=== PATIENT | female | born 1980 | race Caucasian/White ===

== ENCOUNTER 2021-03-30 07:56 | Emergency (ER) | payer MEDICARE, MEDICAID ==
[~2021-03-30] VITALS: Ht 165 cm; Wt 97.0 kg
--- OUTSIDE RECORDS SUMMARY | 2021-03-30 08:03 | XMS REPORT | Clinical Summary ---
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 Not on file Active Problems Not on file Social History Date Tobacco Use Types Packs/Day Years Used Never Assessed Sex Assigned at Date Recorded Not on file Last Filed Vital Signs Not on file Plan of Treatment Health Maintenance Due Date Last Done Comments HPV/Cotest 1980 COVID-19 Vaccine (1) 1992 Cervical Cancer Screening 2001 Pap Smear 2001 Influenza Vaccine (#1) 2021 HPV Vaccine Aged Out No longer eligible based on patient's age to complete this topic Pneumococcal Vaccine: Aged Out No longer eligib le based on patient's age to Pediatrics (0 to 5 Years) complete this topic and At-Risk Patients (6 to 64 Years) Results Not on filefrom Last 3 Months 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
--- OUTSIDE RECORDS SUMMARY | 2021-03-30 08:03 | XMS REPORT | Clinical Summary ---
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 Active busPIRone (BUSPAR) 15 MG Take by mouth 1 06/12 tablet 2 (two) times 8 daily. Active gabapentin (NEURONTIN) TK 1 T PO QID 0 01 600 MG tablet 8 Active mirtazapine (REMERON) 7.5 Take by 1 05/29 5/201 MG tablet mouth. 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 Blood Pressure 100 07/05/2018 10:50 PM CEREAL POPPER Pulse 36.9 C (98.4 F) 07/05/2018 10:04 PM CEREAL POPPER Temperature 20 07/05/2018 10:50 PM CEREAL POPPER Respiratory Rate 100% 07/05/2018 10:50 PM CEREAL POPPER Oxygen Saturation - - Inhaled Oxygen Concentration 58.1 kg (128 lb) 07/05/2018 8:09 PM CEREAL POPPER Weight 165.1 cm (5' 5") 07/05/2018 8:09 PM CEREAL POPPER Height 21.3 07/05/2018 8:09 PM CEREAL POPPER Body Mass Index Plan of Treatment Health Maintenance Due Date Last Done Comments Varicella Vaccines (1 of 1981 2 - 2-dose childhood series) Annual Wellness Visit 1998 Hepatitis C Screening 1998 DTaP,Tdap,and Td Vaccines 1999 (1 - Tdap) MMR Vaccines-Adult 1999 Cervical Cancer Screening 2001 Influenza Vaccine (#1) 2021 COVID-19 Vaccine (2 - 04/11/2021 03/14/2021 Moderna 2-dose series) Pneumo-Vaccine: 65+Yrs (1 2045 of 1 - PPSV23) HIB Vaccines Aged Out No longer eligible based on patient's age to complete this topic IPV Vaccines Aged Out No longer eligible based on patient's age to complete this topic Meningococcal Vaccine Aged Out No longer eligib le based on patient's age to complete this topic Pneumo-Vaccine: Peds (0-5 Aged Out No longer el igible based on patient's age to Yrs) & At-Risk Patients complete this topic (6-64 Yrs) Rotavirus Vaccines Aged Out No longer eligible based on patient's age to complete this topic Results Not on filefrom Last 3 Months Insurance Type Payer Benefit Subscriber ID Effective Phone Address Plan / Dates Group Medicare MEDICARE MEDICARE [id number] 2014-P [address] [place] [address] [employer] KANCARE 19 [id number] 2018- [address] [employer] Present [address] [place] [address] Advance Directives For more information, please contact: [phone] 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
[2021-03-30] MEDS ORDERED: QUET50TA22 (08:27)
[2021-03-30] MEDS ORDERED: ESCI-2 (08:27)
[2021-03-30] MEDS ORDERED: TOPI50TA13 (08:27)
[2021-03-30] MEDS ORDERED: METR70GE5 (08:27)
[2021-03-30] MEDS ORDERED: GBPN600T (08:27)
[2021-03-30] MEDS ORDERED: QUET300T19 (08:27)
[2021-03-30 08:35] LABS: BILIRUBIN,URINE NEGATIVE (NEGATIVE); CLARITY,URINE CLEAR; COLOR,URINE YELLOW; GLUCOSE, URINE (UA) NEGATIVE (NEGATIVE); KETONES,URINE NEGATIVE (NEGATIVE); LEUKOCYTE ESTERASE ,URINE NEGATIVE (NEGATIVE); NITRITE,URINE NEGATIVE (NEGATIVE); PH,URINE 6.5 (5-9); PROTEIN,URINE NEGATIVE (NEGATIVE)
[2021-03-30 08:41] LABS: BACTERIA,URINE NEGATIVE /HPF
[2021-03-30] MEDS ORDERED: LACTATED RINGERS 1,000 ML IV ONE (09:30)
[2021-03-30 09:34] LABS: ALBUMIN 3.9 GM/DL (3.2-4.5); BASOPHILS # (AUTO) 0.1 10^3/uL (0.0-0.1); BASOPHILS % (AUTO) 1 % (0-10); EOSINOPHILS # (AUTO) 0.3 10^3/uL (0.0-0.3); EOSINOPHILS % (AUTO) 4 % (0-10); HEMATOCRIT 41 % (35-52); HEMOGLOBIN 14.1 g/dL (11.5-16.0); LYMPHOCYTES # (AUTO) 2.4 10^3/uL (1.0-4.0); LYMPHOCYTES % (AUTO) 35 % (12-44); MEAN CORPUSCULAR HEMOGLOBIN 33 pg (25-34); MEAN CORPUSCULAR HGB CONC 35 g/dL (32-36); MEAN CORPUSCULAR VOLUME 95 fL (80-99); MEAN PLATELET VOLUME 9.5 fL (9.0-12.2); MONOCYTES # (AUTO) 0.5 10^3/uL (0.0-1.0); MONOCYTES % (AUTO) 7 % (0-12); NEUTROPHILS # (AUTO) 3.7 10^3/uL (1.8-7.8); NEUTROPHILS % (AUTO) 53 % (42-75); PLATELET COUNT 281 10^3/uL (130-400)
[2021-03-30 09:35] LABS: POTASSIUM 3.7 MMOL/L (3.6-5.0)
[2021-03-30 09:36] LABS: CALCIUM 8.9 MG/DL (8.5-10.1)
[2021-03-30 09:37] LABS: TOTAL PROTEIN 6.6 GM/DL (6.4-8.2)
[2021-03-30 09:39] LABS: BILIRUBIN,TOTAL 0.3 MG/DL (0.1-1.0)
[2021-03-30 09:41] LABS: CREATININE SERUM 0.76 MG/DL (0.60-1.30)
--- NOTE | 2021-03-30 09:44 | ED GU-Female ---
General Chief Complaint: - Reproductive Stated Complaint: UNABLE TO URINATE Nursing Triage Note: ARRIVED VIA AMB FROM [facility]. STATES SHE HAS NOT BEEN ABLE TO PEE SINCE YESTERDAY AT 1700 Source: patient Exam Limitations: no limitations History of Present Illness Date Seen by Provider: Mar 30, 2021 Time Seen by Provider: 08:49 Initial Comments Here with report of urinary retention since yesterday evening. She stopped drinking fluids because she did not want to blow up during that timeframe. She reports that she still cannot urinate today. Has had problems with dysuria in the past and or urgency/hesitancy but never had retention before. She did start Seroquel in November and is also on Topamax. Does have history of MS in the family. Follows with [facility]. Sent here for further evaluation. Patient denies fever, chills, nausea, vomiting, diarrhea. Does have intermittent constipation. Also has history of bacterial vaginosis frequently and does metronidazole gel. Timing/Duration: yesterday, getting worse Severity/Quality: moderate, full Location: suprapubic Radiation: none Activities at Onset: none Sexual [place] History: not active Associated Symptoms: dysuria; No fever/chills, No lower back pain, No nausea/vomiting Allergies and Home Medications Allergies Coded Allergies: No Known Drug Allergies (Unverified , 03/30/21) Patient Home Medication List Home Medication List Reviewed: Yes Review of Systems Review of Systems Constitutional: see HPI; No chills, No fever EENTM: No nose congestion, No throat pain Respiratory: No cough, No short of breath Cardiovascular: No chest pain, No edema Gastrointestinal: abdominal pain; No nausea, No vomiting Genitourinary: dysuria, pain, urgency : No Musculoskeletal: No back pain, No muscle stiffness All Other Systemes Reviewed Negative Unless Noted: Yes Past Awkjuvd-Sffhzu-Xetmlk Hx Patient Social History Tobacco Use?: Yes Smoking Status: Current Everyday Smoker Substance use?: No Alcohol Frequency: Daily Immunizations Up To Date First/Initial COVID19 Vaccinat: 2 WEEKS AGO - MODERNA Past Medical History Surgeries: Yes Tubal Ligation Respiratory: No Cardiac: No Neurological: 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 oz. kg; 35.00 BMI Method: General Appearance: WD/WN, no apparent distress HEENT: PERRL/EOMI, pharynx normal Neck: full range of motion, supple Cardiovascular: regular rate, rhythm, no murmur Respiratory: lungs clear, no accessory muscle use Gastrointestinal: normal bowel sounds, non tender, soft, no organomegaly, no pulsatile mass Back: normal inspection, no CVA tenderness, no vertebral tenderness Extremities: non-tender, normal inspection Neurologic/Psychiatric: alert, oriented x 3 Skin: normal color, warm/dry Progress/Results/Core Measures Suspected Sepsis SIRS Temperature: Pulse: 75 Respiratory Rate: 18 Laboratory Tests 03/30/21 09:12: White Blood Count 7.0 Blood Pressure 108 /75 Mean: 86 Laboratory Tests 03/30/21 09:12: Creatinine 0.76, Platelet Count 281, Total Bilirubin 0.3 Results/Orders Lab Results Laboratory Tests Test 03/30/21 08:15 03/30/21 09:12 Range/Units Urine Color YELLOW Urine Clarity CLEAR Urine pH 6.5 5-9 Urine Specific [place] 1.010 L 1.016-1.022 Urine Protein NEGATIVE NEGATIVE Urine Glucose (UA) NEGATIVE NEGATIVE Urine Ketones NEGATIVE NEGATIVE Urine Nitrite NEGATIVE NEGATIVE Urine Bilirubin NEGATIVE NEGATIVE Urine Urobilinogen 1.0 < = 1.0 MG/DL Urine Leukocyte Esterase NEGATIVE NEGATIVE Urine RBC (Auto) NEGATIVE NEGATIVE Urine RBC NONE /HPF Urine WBC NONE /HPF Urine Squamous Epithelial Cells NONE /HPF Urine Crystals NONE /LPF Urine Bacteria NEGATIVE /HPF Urine Casts NONE /LPF Urine Mucus NEGATIVE /LPF Urine Culture Indicated NO White Blood Count 7.0 4.3-11.0 10^3/uL Red Blood Count 4.29 3.80-5.11 10^6/uL Hemoglobin 14.1 11.5-16.0 g/dL Hematocrit 41 35-52 % Mean Corpuscular Volume 95 80-99 fL Mean Corpuscular Hemoglobin 33 25-34 pg Mean Corpuscular Hemoglobin Concent 35 32-36 g/dL Red Cell Distribution Width 12.8 10.0-14.5 % Platelet Count 281 130-400 10^3/uL Mean Platelet Volume 9.5 9.0-12.2 fL Immature Granulocyte % (Auto) 0 % Neutrophils (%) (Auto) 53 42-75 % Lymphocytes (%) (Auto) 35 12-44 % Monocytes (%) (Auto) 7 0-12 % Eosinophils (%) (Auto) 4 0-10 % Basophils (%) (Auto) 1 0-10 % Neutrophils # (Auto) 3.7 1.8-7.8 10^3/uL Lymphocytes # (Auto) 2.4 1.0-4.0 10^3/uL Monocytes # (Auto) 0.5 0.0-1.0 10^3/uL Eosinophils # (Auto) 0.3 0.0-0.3 10^3/uL Basophils # (Auto) 0.1 0.0-0.1 10^3/uL Immature Granulocyte # (Auto) 0.0 0.0-0.1 10^3/uL Erythrocyte Sedimentation Rate 25 H 0-20 MM/HR Sodium Level 142 135-145 MMOL/L Potassium Level 3.7 3.6-5.0 MMOL/L Chloride Level 113 H 98-107 MMOL/L Carbon Dioxide Level 20 L 21-32 MMOL/L Anion Gap 9 5-14 MMOL/L Blood Urea Nitrogen 9 7-18 MG/DL Creatinine 0.76 0.60-1.30 MG/DL Estimat Glomerular Filtration Rate 84 BUN/Creatinine Ratio 12 Glucose Level 105 70-105 MG/DL Calcium Level 8.9 8.5-10.1 MG/DL Corrected Calcium 9.0 8.5-10.1 MG/DL Total Bilirubin 0.3 0.1-1.0 MG/DL Aspartate Amino Transf (AST/SGOT) 17 5-34 U/L Alanine Aminotransferase (ALT/SGPT) 20 0-55 U/L Alkaline Phosphatase 96 40-136 U/L C-Reactive Protein High Sensitivity 1.01 H 0.00-0.50 MG/DL Total Protein 6.6 6.4-8.2 GM/DL Albumin 3.9 3.2-4.5 GM/DL My Orders Orders - JOVANA TERAN MD Ua Culture If Indicated (03/30/21 08:30) Cbc With Automated Diff (03/30/21 09:22) Comprehensive Metabolic Panel (03/30/21 09:22) Hs C Reactive Protein (03/30/21 09:22) Erythrocyte Sedimentation Rate (03/30/21 09:22) Ed Iv/Invasive Line Start (03/30/21 09:22) Lactated Ringers (Lr 1000 Ml Iv Solution (03/30/21 09:30) Catheter(Urinary) Insert & Ass 03,15 (03/30/21 09:22) Medications Given in ED Current Medications Medications Dose Ordered Sig/Xander Route Start Time Stop Time Status Last Admin Dose Admin Lactated Ringer's 1,000 ml @ 0 mls/hr Q0M ONCE IV 03/30/21 09:30 03/30/21 09:31 DC 03/30/21 09:26 1,000 MLS/HR Vital Signs/I&O 03/30/21 08:00 Temp 36.9 Pulse 75 Resp 18 B/P (MAP) 108/75 (86) Pulse Ox 94 O2 Delivery Room Air Capillary Refill : Less Than 3 Seconds Blood Pressure Mean: 86 Progress Note : Progress Note Seen and evaluated. Bladder scan revealed scant urine but Bhakta placed and did relieve approximately 350 mL of urine. We will go ahead and get an IV and give IV fluid as well as check labs. UA did not reveal urinary tract infection. We will see how she does after fluids and try to remove the Bhakta catheter and see if she can urinate at that time. Monitor patient. 1112: Bhakta catheter was removed after 500 mL of fluid given IV. She was able to urinate afterwards without difficulty and feels much better now. Labs are nonconcerning at this point. She does need follow-up and this was talked about with the patient. She will seek follow-up at [facility] to continue to discuss urinary tract problems and also concerns for MS given her family history. Right now this may just be related to dehydration and/or medication adverse effect. All of this was discussed with the patient as well. Discharged home with return precautions. Patient verbalized understanding instructions and agreement with plan. Departure Impression Primary Impression: Urinary retention Disposition: 01 HOME, SELF-CARE Condition: Improved Departure-Patient Inst. Decision time for Depature: 11:13 Referrals: [facility] (PCP/Family) Primary Care Physician Patient Instructions: Urinary Retention (DC) Add. Discharge Instructions: All discharge instructions reviewed with patient and/or family. Voiced understanding. Maintain appropriate hydration. Your urine should be light yellow. If it becomes darker, you need to drink more fluids. Avoid soda pop. Follow-up with community health to discuss your current situation as well as to discuss the family history of MS. Return for urinary retention, weakness, breathing problems, vomiting, fever or other concerns as needed. Copy Copies To 1: DHIRAJ SCHROEDER MD, TIMOTHY D MD Mar 30, 2021 09:44
[2021-03-30 10:00] LABS: ERYTHROCYTE SEDIMENTATION RATE 25 MM/HR (0-20)
[2021-03-30 11:38] VITALS: BP 108/75
== END 2021-03-30 11:38 | disposition home or self-care (01) ==
LOC: EDUNIT# 07:56 → ER 07:58
DX: R33.9 Retention of urine, unspecified (principal); F17.290 Nicotine dependence, other tobacco product, uncomplicated
CPT/HCPCS: 36415; 51702; 80053; 81000; 85025; 85652; 86141; 96360